=== PATIENT | female | born 1940 | race Caucasian/White ===

== ENCOUNTER 2017-01-07 00:49 | Emergency (ER) | payer OTHER, BC ==
--- NOTE | 2017-01-07 00:57 | PDOC ---
History of Present Illness - General Chief Complaint: Lightheaded Stated Complaint: DIZZY/VOMITING Time Seen by Provider: 01/07/17 00:56 History Source: Patient Exam Limitations: No Limitations - History of Present Illness Initial Comments: 01/07/17 01:03 This is a 76-year-old female who comes in complaining of acute onset of dizziness/vertigo associated with nausea and vomiting. Patient denies history of similar symptoms in the past. Patient denies any headache or neurological complaints. Patient is noted to be vomiting in the emergency room every time she tries to move her head. Patient denies any tinnitus. PAST MEDICAL HISTORY: no significant history PAST SURGICAL HISTORY: no significant history FAMILY HISTORY: no pertinant history SOCIAL HISTORY: Pt lives with family and is employed. MEDICATIONS: reviewed ALLERGIES: As per nursing notes Review of Systems General: No fevers or chills, no weakness, no weight loss HEENT: No change in vision. No sore throat,. No ear pain CardioVascular: No chest pain or shortness of breath Respiratory:No cough, or wheezing. Gastrointestinal: + nausea, + vomitting, no diarrhea or constipation, No rectal bleeding Genitourinary: No dysuria, hematuria, or frequency Musculoskeletal: No joint or muscle pain or swelling Neurologic: No headache, + vertigo, + dizziness no loss of consciousness Psychiatric: nor depression Skin: No rashes or easy bruising Endocrine: no increased thirst or abnormal weight change Allergic: no skin or latex allergy All other systems reviewed and normal Exam: General: Well-nourished well-developed individual, vomiting in moderate distress HEENT: Throat: Normal, tonsils normal, no erythema or exudate Neck: Supple, no meningeal signs, no lymphadenopathy Eyes::Pupils equal reactive and round, extraocular motion intact Ears: Tympanic membranes are normal bilateral Chest: Nontender to palpation Cardiac: S1-S2 normal, regular rate and rhythm, no murmurs rubs or gallops Respiratory: Lungs clear to auscultation bilateral Abdomen: Soft, nondistended, normal bowel sounds, nontender to palpation diffusely Extremities: Warm, dry, no cyanosis, clubbing, or edema Skin: No rashes Neuro: Alert and oriented x3, nonfocal exam, grossly intact, normal gait Psych: Normal mood and affect 01/07/17 02:[address] no acute pathology Reevaluation patient feels much better. The vertigo and nausea has resolved. Patient is able to tolerate by mouth's and drinking water. Assessment and plan: This is a 76-year-old female comes in complaining of acute onset of spinning/dizziness and nausea with vomiting. Patient was vomiting here in the emergency room. Workup was done including labs and CAT scan all of which were negative Patient was giving antiemetics and meclizine with near complete complete resolution of her symptoms. Prescriptions were sent to patient's pharmacy for meclizine and the Zofran Patient discharged home will follow-up with her primary care doctor as needed Past History - Past Medical History Allergies/Adverse Reactions: Allergies Allergy/AdvReac Type Severity Reaction Status Date / Time No Known Allergies Allergy Verified 01/07/17 00:51 Home Medications: Ambulatory Orders Meclizine HCl [Antivert -] 25 mg PO QID #30 tablet 01/07/17 Ondansetron [Ondansetron Odt] 8 mg PO TID PRN #28 tab.rapdis 01/07/17 ED Treatment Course - LABORATORY CBC & Chemistry Diagram: 01/07/17 01:10 01/07/17 01:10 *DC/Admit/Observation/Transfer Diagnosis at time of Disposition: Vertigo Vomiting Qualifiers: Vomiting type: unspecified Vomiting Intractability: non-intractable Nausea presence: unspecified Qualified Code(s): R11.10 - Vomiting, unspecified - Discharge Dispostion Disposition: HOME Condition at time of disposition: Stable Admit: No - Prescriptions Prescriptions: Meclizine HCl [Antivert -] 25 mg PO QID #30 tablet Ondansetron [Ondansetron Odt] 8 mg PO TID PRN #28 tab.rapdis PRN Reason: Nausea - Patient Instructions Printed Discharge Instructions: DI for Vertigo Additional Instructions: For the dizziness U can take meclizine 1 tablet as often as every 4-6 hours if needed For nausea take Zofran 1 tablet as often as 3 times a day dissolved under your tongue. Return to the emergency department immediately with ANY new, persistent or worsening symptoms. Continue any medications as previously prescribed by your physician. You should follow up with your primary doctor as soon as possible regarding today's emergency department visit. . Please make sure your doctor reviews the results of your emergency evaluation. Thank you for coming to the Emergency Department today for your care. It was a pleasure to see you today. Please note that your evaluation is INCOMPLETE until you follow-up with your doctor.
[2017-01-07] MEDS ORDERED: SODIUM CHLORIDE 1,000 ML IV ONE (01:02)
[2017-01-07] MEDS ORDERED: MECLIZINE HCL 25 MG TABLET (FP) PO ONE (01:03)
[2017-01-07] MEDS ORDERED: ONDANSETRON 4 MG/2 ML VIAL IVPB ONE (01:03)
[2017-01-07 01:22] VITALS: BP 150/75; PULSE 80; BMI 31.8
[2017-01-07] MEDS ORDERED: ONDANSETRON 4 MG/2 ML VIAL ONE (01:24)
[2017-01-07 01:45] LABS: BASOPHIL 0.2 % (0-2.0); MCH 31.1 pg (25.7-33.7); MCHC 33.5 g/dl (32.0-36.0); MEAN CELL VOLUME 92.8 fl (80-96); MEAN PLT VOLUME 8.2 fl (7.5-11.1); NEUTROPHILS 81.1 % (42.8-82.8); PLATELET COUNT 252 K/MM3 (134-434); RDW 12.9 % (11.6-15.6)
[2017-01-07 02:18] LABS: ALBUMIN 4.1 g/dl (3.4-5.0); ALK PHOS 78 U/L (45-117); ANION GAP 18 (8-16); BILIRUBIN,TOTAL 0.6 mg/dL (0.2-1.0); CO2 21 mmol/L (21-32); COCKROFT - GAULT 70.6775; CREATININE 0.9 mg/dL (0.55-1.02); GLUCOSE,RANDOM 171 mg/dL (74-106); SGOT/AST 32 U/L (15-37); SGPT/ALT 39 U/L (12-78); TOT PROT 7.3 g/dl (6.4-8.2)
== END 2017-01-07 02:39 | disposition home or self-care (01) ==
LOC: FER 00:49
PROC: 3E033GC Introduction of Other Therapeutic Substance into Peripheral Vein, Percutaneous Approach (ICD-10-PCS; principal; 2017-01-07)
PROC: 3E0337Z Introduction of Electrolytic and Water Balance Substance into Peripheral Vein, Percutaneous Approach (ICD-10-PCS; 2017-01-07)
DX: R42 Dizziness and giddiness (principal); R11.10 Vomiting, unspecified
CPT/HCPCS: 36415; 70450-TC; 80053; 85025; 96361; 96374; 99281-25